=== PATIENT | female | born 1955 | race Caucasian/White ===

== ENCOUNTER → 2025-01-20 08:29 | Outpatient (REF) | payer MEDICARE, SELFPAY | LOC: RCS 08:29 | PROVIDERS: ATTENDING PHYSICIAN Internal Medicine | DX: I48.0 Paroxysmal atrial fibrillation (principal) | CPT/HCPCS: 93306 ==

== ENCOUNTER → 2025-02-15 06:52 | Outpatient (REF) | payer MEDICARE, SELFPAY | LOC: RCS 06:52 | PROVIDERS: ATTENDING PHYSICIAN Internal Medicine; FAMILY PHYSICIAN Internal Medicine | DX: I48.0 Paroxysmal atrial fibrillation (principal); I10 Essential (primary) hypertension; R94.31 Abnormal electrocardiogram [ECG] [EKG]; R00.2 Palpitations; R42 Dizziness and giddiness | CPT/HCPCS: 78452; 93017; A9500 ==

== ENCOUNTER → 2025-07-23 08:19 | Outpatient (REF) | payer MEDICARE, SELFPAY | LOC: RCS 08:19 | PROVIDERS: ATTENDING PHYSICIAN Internal Medicine; FAMILY PHYSICIAN Internal Medicine | DX: I48.0 Paroxysmal atrial fibrillation (principal); I34.0 Nonrheumatic mitral (valve) insufficiency; I36.1 Nonrheumatic tricuspid (valve) insufficiency; R00.2 Palpitations; R42 Dizziness and giddiness | CPT/HCPCS: 93306 ==